=== PATIENT | female | born 1995 | race Caucasian/White ===

== ENCOUNTER 2022-02-14 18:21 | Day surgery (SDC) | payer OTHER ==
[2022-02-14] MEDS ORDERED: hydrALAZINE 20 MG/ML VIAL SLOW IVP PRN (19:59)
[2022-02-14 20:14] LABS: Bilirubin 3+ (Negative); Blood, Urine 10 (Negative); Clarity Clear (Clear); Glucose, Urine (Dipstick) Normal (Negative); Ketone, Urine Negative (Negative); Leukocyte 25 (Negative); Nitrite Positive (Negative); Protein, Urine (Dipstick) Negative (Neg-Trace); pH, Urine 6.5 (5.0-9.0)
[2022-02-14 20:20] LABS: WBC/HPF 0-3 HPF (0-3)
[2022-02-14 20:24] LABS: Bacteria/HPF Rare-Few HPF (None Seen); Squamous Epithelial 0-3 HPF (0-3)
[2022-02-14 20:25] LABS: Urine Culture Reflex Yes Yes
== END 2022-02-14 21:31 | disposition home or self-care (01) ==
LOC: CSHLD/OP 18:21
PROVIDERS: ATTEND Student in an Organized Health Care Education/Training Program
DX: O26.893 Other specified pregnancy related conditions, third trimester (principal); R10.30 Lower abdominal pain, unspecified; M54.50 Low back pain, unspecified; O23.43 Unspecified infection of urinary tract in pregnancy, third trimester; N39.0 Urinary tract infection, site not specified; O34.219 Maternal care for unspecified type scar from previous cesarean delivery; Z3A.29 29 weeks gestation of pregnancy
CPT/HCPCS: 81001; 87086; 99285

== ENCOUNTER 2022-03-18 17:10 | Observation (INO) | payer OTHER ==
[2022-03-18 17:31] VITALS: BMI 29.9
[2022-03-18] MEDS ORDERED: Ondansetron PF 4 MG/2 ML Vial IVP PRN (19:00)
[2022-03-18] MEDS ORDERED: ceFAZolin 2 GM/Dextrose 50 ML 2 GM in Premix Bag 1 BAG IVPB SCH (19:00)
[2022-03-18] MEDS ORDERED: Butorphanol Tartrate 1 MG/ML VIAL SLOW IVP PRN (19:00)
[2022-03-18] MEDS ORDERED: hydrALAZINE 20 MG/ML VIAL SLOW IVP PRN (19:00)
[2022-03-18] MEDS ORDERED: Famotidine/PF 20 mg/2ml Vial SLOW IVP PRN (19:00)
[2022-03-18] MEDS ORDERED: Lactated Ringer's 1,000 ML IV SCH ×2 (19:00)
[2022-03-18] MEDS ORDERED: Promethazine HCl 25 MG/ML VIAL IM PRN (19:00)
[2022-03-18] MEDS ORDERED: Zolpidem Tartrate 5 MG TAB PO PRN (19:00)
[2022-03-18] MEDS ORDERED: Bicitra 30 ML UDCUP PO PRN (19:00)
[2022-03-18] MEDS ORDERED: Betamet Acet/Betamet Na Ph 30 MG/5 ML VIAL IM SCH (19:15)
[2022-03-18 20:40] LABS: Hemoglobin 12.1 g/dL (12.0-15.5); Mean Corpuscular HGB CONC 33.9 g/dL (32.0-36.0); Mean Corpuscular Hemoglobin 28.3 pg (27.0-33.0); Mean Corpuscular Volume 83.4 fl (81.6-98.3); Mean Platelet Volume 9.9 fl (7.4-10.4); Platelet Count 297 10x3/uL (150-450); RBC Distribution Width 12.6 % (11.5-14.5); Red Blood Cell (RBC) Count 4.28 10x6/uL (3.90-5.03); White Blood Cell (WBC) Count 9.4 10x3/uL (3.5-10.5)
[2022-03-18 20:41] LABS: Bilirubin Neg (Negative); Blood, Urine Negative (Negative); Clarity Clear (Clear); Glucose, Urine (Dipstick) Normal (Negative); Ketone, Urine Negative (Negative); Leukocyte Negative (Negative); Nitrite Negative (Negative); Protein, Urine (Dipstick) Negative (Neg-Trace); Urobilinogen Normal mg/dL (Less than 2)
[2022-03-18 20:43] LABS: Urine Culture Reflex No No
[2022-03-18 20:58] LABS: Bacteria/HPF None Seen HPF (None Seen); RBC/HPF 0-3 HPF (0-3); Squamous Epithelial None Seen HPF (0-3); WBC/HPF 0-3 HPF (0-3)
[2022-03-18 21:13] LABS: Hep B Surf Ag Non-Reactive S/CO (NonReactive); Syphilis Antibody Nonreactive (Nonreactive); Syphilis Antibody Index 0.08 S/CO (<1.00 Non-Reactive)
[2022-03-18 21:21] LABS: SARS-CoV-2 NAA Rapid Test Not Detected (NotDetected)
[2022-03-18 21:26] LABS: HBSAg Index 0.21 S/CO (0-0.99)
[2022-03-18] MEDS: levETIRAcetam 500 MG TAB PO SCH (21:32)
[2022-03-19] MEDS: levETIRAcetam 500 MG TAB PO SCH (09:25)
[2022-03-19] MEDS ORDERED: Witch Hazel-Glycerin 1 EACH JAR TOP PRN (10:44)
== END 2022-03-19 12:50 | disposition home health service (06) ==
LOC: CSHLD/OP 17:10 → CSHLD 19:00 → UNDOADMOB 03-19 06:20 → UNDODISOB 03-19 12:50
PROVIDERS: ADMIT Student in an Organized Health Care Education/Training Program; ATTEND Student in an Organized Health Care Education/Training Program
DX: O99.613 Diseases of the digestive system complicating pregnancy, third trimester (principal); K52.9 Noninfective gastroenteritis and colitis, unspecified; O47.03 False labor before 37 completed weeks of gestation, third trimester; O21.2 Late vomiting of pregnancy; O99.353 Diseases of the nervous system complicating pregnancy, third trimester; G40.909 Epilepsy, unspecified, not intractable, without status epilepticus; O09.213 Supervision of pregnancy with history of pre-term labor, third trimester; O34.219 Maternal care for unspecified type scar from previous cesarean delivery; Z3A.34 34 weeks gestation of pregnancy; Z79.82 Long term (current) use of aspirin; Z79.899 Other long term (current) drug therapy; Z20.822 Contact with and (suspected) exposure to COVID-19
CPT/HCPCS: 36415; 81001; 85027; 86780; 86850; 86900; 86901; 87340; 99285; J0595; J0690; J0702; S0028

== ENCOUNTER 2022-03-20 19:45 | Observation (INO) | payer OTHER ==
[2022-03-20 20:07] VITALS: BMI 29.9
[2022-03-20] MEDS ORDERED: hydrALAZINE 20 MG/ML VIAL SLOW IVP PRN (20:59)
[2022-03-20] MEDS ORDERED: Lactated Ringer's 1,000 ML IV SCH ×2 (21:00→21:15)
[2022-03-20] MEDS ORDERED: Loperamide HCl 1 MG/7.5 ML UDCUP PO PRN (21:04)
[2022-03-20] MEDS ORDERED: Butorphanol Tartrate 1 MG/ML VIAL SLOW IVP SCH (22:00)
[2022-03-21] MEDS ORDERED: Ondansetron PF 4 MG/2 ML Vial ONE (00:26)
[2022-03-21] MEDS ORDERED: Ondansetron PF 4 MG/2 ML Vial IVP PRN (00:39)
[2022-03-21] MEDS ORDERED: NIFEdipine 10 MG CAP ONE ×2 (08:48→08:49)
[2022-03-21] MEDS ORDERED: Lactated Ringer's 1,000 ML IV SCH (09:00)
[2022-03-21] MEDS ORDERED: NIFEdipine 10 MG CAP PO SCH ×2 (09:00→09:30)
[2022-03-21] MEDS ORDERED: NIFEdipine 10 MG CAP PO PRN (10:00)
== END 2022-03-21 12:35 | disposition home or self-care (01) ==
LOC: CSHLD/OP 19:45 → CSHLD 23:09
PROVIDERS: ADMIT Student in an Organized Health Care Education/Training Program; ATTEND Student in an Organized Health Care Education/Training Program
DX: O47.03 False labor before 37 completed weeks of gestation, third trimester (principal); O99.891 Other specified diseases and conditions complicating pregnancy; R19.7 Diarrhea, unspecified; O34.219 Maternal care for unspecified type scar from previous cesarean delivery; O99.353 Diseases of the nervous system complicating pregnancy, third trimester; G40.909 Epilepsy, unspecified, not intractable, without status epilepticus; Z3A.34 34 weeks gestation of pregnancy; Z79.899 Other long term (current) drug therapy
CPT/HCPCS: 99285; G0378; J0595

== ENCOUNTER 2022-04-06 05:35 | Inpatient (IN) | payer OTHER ==
[2022-04-05 10:58] LABS: Hemoglobin 12.4 g/dL (12.0-15.5); Mean Corpuscular HGB CONC 33.2 g/dL (32.0-36.0); Mean Corpuscular Volume 81.3 fl (81.6-98.3); Mean Platelet Volume 9.8 fl (7.4-10.4); Platelet Count 307 10x3/uL (150-450); RBC Distribution Width 13.5 % (11.5-14.5)
[2022-04-05 11:34] LABS: HIV (1/2) Antibody/Antigen Non-Reactive (NonReactive); HIV 1/2 INDEX 0.05 S/CO (<1.00); Hep B Surf Ag Non-Reactive S/CO (NonReactive); Syphilis Antibody Nonreactive (Nonreactive); Syphilis Antibody Index 0.06 S/CO (<1.00 Non-Reactive)
[2022-04-05 11:35] LABS: HBSAg Index 0.18 S/CO (0-0.99)
[2022-04-05 18:13] LABS: SARS-CoV-2 PCR by NAA Not Detected (NotDetected)
[2022-04-06] MEDS ORDERED: Ondansetron PF 4 MG/2 ML Vial IVP PRN ×3 (06:05→11:12)
[2022-04-06] MEDS ORDERED: Promethazine HCl 25 MG/ML VIAL IM PRN ×2 (06:05→08:49)
[2022-04-06] MEDS ORDERED: Lactated Ringer's 1,000 ML IV SCH (06:05)
[2022-04-06] MEDS ORDERED: ceFAZolin 2 GM/Dextrose 50 ML 2 GM in Premix Bag 1 BAG IVPB SCH (06:05)
[2022-04-06] MEDS ORDERED: Famotidine/PF 20 mg/2ml Vial SLOW IVP PRN (06:05)
[2022-04-06] MEDS ORDERED: Bicitra 30 ML UDCUP PO PRN (06:05)
[2022-04-06] MEDS ORDERED: hydrALAZINE 20 MG/ML VIAL SLOW IVP PRN ×2 (06:05→11:12)
[2022-04-06 06:40] VITALS: BMI 29.4
[2022-04-06] MEDS ORDERED: ePHEDrine Sulfate 50 MG/10 ML VIAL ONE (07:11)
[2022-04-06] MEDS ORDERED: Morphine PF 10 MG/10 ML VIAL ONE (07:11)
[2022-04-06] MEDS ORDERED: Oxytocin 10 UNITS/ML VIAL ONE (07:12)
[2022-04-06] MEDS ORDERED: Phenylephrine 40 MG/NS 250 ML 0 ML ONE (07:12)
[2022-04-06] MEDS ORDERED: PHENYLEPHRINE-NS 100 MCG/ML 10 ML SYRINGE ONE (07:12)
[2022-04-06] MEDS ORDERED: Glycopyrrolate 0.2 MG/ML 5 ML SYRINGE ONE (07:12)
[2022-04-06] MEDS ORDERED: Ketorolac Tromethamine 30 MG/ML VIAL ONE (07:12)
[2022-04-06] MEDS ORDERED: Ondansetron PF 4 MG/2 ML Vial ONE (07:12)
[2022-04-06] MEDS ORDERED: Fentanyl 100 MCG/2 ML VIAL ONE (08:24)
[2022-04-06] MEDS ORDERED: Promethazine HCl 25 MG/ML VIAL ONE (08:29)
[2022-04-06] MEDS ORDERED: Sterile Water 40 ML ONE (08:29)
[2022-04-06] MEDS ORDERED: Naloxone HCl 0.4 mg/ml Vial IVP PRN ×2 (08:49)
[2022-04-06] MEDS ORDERED: diphenhydrAMINE 50 MG/ML VIAL IVP PRN (08:49)
[2022-04-06] MEDS ORDERED: Fentanyl 100 MCG/2 ML VIAL SLOW IVP PRN (08:49)
[2022-04-06] MEDS ORDERED: Ondansetron HCl/PF 4 MG/2 ML Vial IVP PRN (08:49)
[2022-04-06] MEDS ORDERED: Naloxone HCl 0.4 mg/ml Vial IV PRN (08:49)
[2022-04-06] MEDS ORDERED: Promethazine HCl 25 MG SUPP PR PRN (08:49)
[2022-04-06] MEDS ORDERED: Meperidine HCl/PF 25 MG/ML VIAL SLOW IVP PRN (08:49)
[2022-04-06] MEDS ORDERED: Moisturizing Cream (Eucerin) 113 GM JAR TOP PRN (08:49)
[2022-04-06] MEDS ORDERED: Communication Order-Pharmacy FS SCH (09:00)
[2022-04-06] MEDS ORDERED: NS w/ Oxytocin 30 units 500 ML ONE (09:51)
[2022-04-06] MEDS ORDERED: NS w/ Oxytocin 30 units 500 ML IV SCH (10:02)
[2022-04-06] MEDS ORDERED: Lanolin Ointment 7 GM TUBE TOP PRN (11:12)
[2022-04-06] MEDS ORDERED: diphenhydrAMINE 25 MG CAP PO PRN (11:12)
[2022-04-06] MEDS ORDERED: Methylergonovine 0.2 MG/ML VIAL IM PRN (11:12)
[2022-04-06] MEDS ORDERED: Simethicone Chewable 80 MG TAB PO PRN (11:12)
[2022-04-06] MEDS ORDERED: Boostrix 0.5 ML (Tdap) VIAL IM ONE (11:12)
[2022-04-06] MEDS ORDERED: Misoprostol 200 MCG TAB PR PRN (11:12)
[2022-04-06] MEDS ORDERED: levETIRAcetam 500 MG TAB PO SCH (12:00)
[2022-04-06] MEDS ORDERED: Docusate 100 MG CAP PO SCH (12:00)
[2022-04-06] MEDS ORDERED: Prenatal Vitamin 1 TAB PO SCH (12:00)
[2022-04-06] MEDS ORDERED: Ferrous Sulfate 325 MG TAB PO SCH (12:00)
[2022-04-06] MEDS ORDERED: Ketorolac Tromethamine 30 MG/ML VIAL IVP SCH (14:29)
[2022-04-06] MEDS: Ketorolac Tromethamine 30 MG/ML VIAL IVP PRN ×2 (15:30→21:44)
[2022-04-06] MEDS: levETIRAcetam 500 MG TAB PO SCH (21:44)
[2022-04-06] MEDS: Docusate 100 MG CAP PO SCH (21:44)
[2022-04-06] MEDS: Ferrous Sulfate 325 MG TAB PO SCH (21:45)
[2022-04-07] MEDS: HYDROcodone/Acetaminophen 5/325 mg Tablet PO PRN ×3 (02:18→21:55)
[2022-04-07 04:46] LABS: Hemoglobin 10.7 g/dL (12.0-15.5); Mean Corpuscular HGB CONC 33.2 g/dL (32.0-36.0); Mean Corpuscular Hemoglobin 26.9 pg (27.0-33.0); Mean Corpuscular Volume 80.9 fl (81.6-98.3); Mean Platelet Volume 9.5 fl (7.4-10.4); Platelet Count 246 10x3/uL (150-450); RBC Distribution Width 13.4 % (11.5-14.5); Red Blood Cell (RBC) Count 3.98 10x6/uL (3.90-5.03); White Blood Cell (WBC) Count 11.6 10x3/uL (3.5-10.5)
[2022-04-07] MEDS: Ketorolac Tromethamine 30 MG/ML VIAL IVP PRN (05:29)
[2022-04-07] MEDS: Prenatal Vitamin 1 TAB PO SCH (08:53)
[2022-04-07] MEDS: Ferrous Sulfate 325 MG TAB PO SCH ×2 (08:53→21:52)
[2022-04-07] MEDS: levETIRAcetam 500 MG TAB PO SCH ×2 (08:53→22:00)
[2022-04-07] MEDS: Docusate 100 MG CAP PO SCH ×2 (08:53→21:51)
[2022-04-07] MEDS: Ibuprofen 800 MG TAB PO SCH ×2 (14:16→21:51)
[2022-04-08] MEDS: Ibuprofen 800 MG TAB PO SCH (06:03)
[2022-04-08] MEDS: HYDROcodone/Acetaminophen 5/325 mg Tablet PO PRN ×2 (06:03→10:08)
[2022-04-08 08:04] VITALS: BP 109/70; TEMP 97.7
[2022-04-08] MEDS: Prenatal Vitamin 1 TAB PO SCH (09:43)
[2022-04-08] MEDS: Ferrous Sulfate 325 MG TAB PO SCH (09:44)
[2022-04-08] MEDS: Docusate 100 MG CAP PO SCH (09:44)
[2022-04-08] MEDS: levETIRAcetam 500 MG TAB PO SCH (09:44)
== END 2022-04-08 10:22 | disposition home or self-care (01) | DRG 787 ==
LOC: CSHLD 05:35 → CSHPED 10:55
PROVIDERS: ADMIT Student in an Organized Health Care Education/Training Program; ATTEND Student in an Organized Health Care Education/Training Program
PROC: 10D00Z1 Extraction of Products of Conception, Low, Open Approach (ICD-10-PCS; principal; 2022-04-06)
DX: O34.211 Maternal care for low transverse scar from previous cesarean delivery (principal); O99.354 Diseases of the nervous system complicating childbirth; O23.593 Infection of other part of genital tract in pregnancy, third trimester; O99.284 Endocrine, nutritional and metabolic diseases complicating childbirth; E28.2 Polycystic ovarian syndrome; G40.909 Epilepsy, unspecified, not intractable, without status epilepticus; N80.9 Endometriosis, unspecified; Z20.822 Contact with and (suspected) exposure to COVID-19; Z3A.37 37 weeks gestation of pregnancy; Z37.0 Single live birth; O99.892 Other specified diseases and conditions complicating childbirth; Z79.899 Other long term (current) drug therapy
CPT/HCPCS: 51702; 85027; 86780; 86850; 86900; 86901; 87340; 87389; 88307; J0690; J1885; J2274; J2405; J2550; J2590; J3010; S0028; U0003; U0005